=== PATIENT | female | born 1980 | race Two or more races ===

== ENCOUNTER 2020-09-15 13:28 | Outpatient (CLI) | payer OTHER | END 2020-09-15 13:56 | disposition home or self-care (01) | LOC: NUCLEAR 13:28 | PROVIDERS: ATTEND Internal Medicine Sports Medicine | DX: C73 Malignant neoplasm of thyroid gland (principal); E89.0 Postprocedural hypothyroidism | CPT/HCPCS: 79005; A9512 ==

== ENCOUNTER → 2020-09-19 | Outpatient (CLI) | payer OTHER | END | disposition home or self-care (01) | LOC: NUCLEAR 13:00 | PROVIDERS: ATTEND Internal Medicine Sports Medicine | DX: C73 Malignant neoplasm of thyroid gland (principal); E89.0 Postprocedural hypothyroidism ==

== ENCOUNTER 2022-02-26 12:45 | Outpatient (CLI) | payer OTHER | END 2022-02-26 12:55 | disposition home or self-care (01) | LOC: NUCLEAR 12:45 | PROVIDERS: ATTEND Internal Medicine Sports Medicine | DX: C73 Malignant neoplasm of thyroid gland (principal) | CPT/HCPCS: 78012; A9531 ==